=== PATIENT | male | born 1970 | race African-American/Black ===

== ENCOUNTER 2025-02-15 21:12 | Inpatient (IN) | payer SELFPAY ==
[~2025-02-15] VITALS: Ht 175.3 cm; Wt 75.7 kg
[2025-02-15] MEDS: SODIUM CHLORIDE 0.9% 1,000 ML IV ONE (06:00)
[2025-02-15 21:26] VITALS: O2SAT 99
[2025-02-15] MEDS ORDERED: MORPHINE SULFATE 4 MG/ML INJ (FOR IV/IM USE) IV STA (22:03)
[2025-02-15] MEDS ORDERED: PANTOPRAZOLE SODIUM 40 MG/VIAL IV STA (22:03)
[2025-02-15] MEDS ORDERED: ONDANSETRON HCL 4MG/2ML INJ IV STA (22:03)
[2025-02-15 23:48] LABS: BASOPHILS % 0.3 % (0.0-2.0); EOSINOPHILS % 0.1 % (0.0-5.0); HEMATOCRIT. 51.1 % (42.0-52.0); HEMOGLOBIN. 16.5 g/dL (14.0-18.0); LYMPHOCYTES % 11.1 % (20.0-50.0); MEAN CORPUSCULAR HEMOGLOBIN 27.8 pg (28.0-32.0); MEAN CORPUSCULAR HGB CONC 32.3 g/dL (31.0-37.0); MEAN CORPUSCULAR VOLUME 86.1 fL (80.0-94.0); MEAN PLATELET VOLUME 9.6 fl (7.4-10.4); MONOCYTES % 4.5 % (2.0-8.0); PLATELET 245 x1000/uL (130-400); RED BLOOD CELL COUNT 5.93 mill/uL (4.7-6.1); RED CELL DISTRIBUTION WIDTH 15.8 % (11.6-14.6); WHITE BLOOD COUNT 13.8 x1000/uL (4.5-11.0)
[2025-02-15 23:53] LABS: CARBON DIOXIDE 18 mEq/L (21-32); CHLORIDE 106 mEq/L (98-107); POTASSIUM 5.3 mEq/L (3.5-5.1); SODIUM 137 mEq/L (136-145)
[2025-02-15 23:54] LABS: CALCIUM 9.4 mg/dL (8.7-10.4)
[2025-02-15 23:58] LABS: CREATININE 1.8 mg/dL (0.6-1.3)
[2025-02-15 23:59] LABS: ETHANOL BLOOD < 10 mg/dL (<10); UREA NITROGEN BLOOD 30 mg/dL (9-23)
[2025-02-16] LABS: ALANINE AMINOTRANSFERASE 19 IU/L (10-49); ALBUMIN 4.3 g/dL (3.2-4.8); ASPARTATE AMINOTRANSFERASE 11 IU/L (<34)
[2025-02-16 00:01] LABS: BILIRUBIN DIRECT 0.2 mg/dL (<=3.0); BILIRUBIN TOTAL 0.5 mg/dL (0.1-1.0); PROTEIN TOTAL 7.2 g/dL (6.0-8.3)
[2025-02-16 00:24] LABS: GLUCOSE 436 mg/dL (70-105); TROPONIN I HIGH SENSITIVITY < 4 ng/L (3.0-53)
[2025-02-16] MEDS ORDERED: CLONIDINE 0.1MG TABLET PO PRN (02:00)
[2025-02-16] MEDS ORDERED: IPRATROPIUM/ALBUTEROL 0.5-3(2.5)MG/3ML NEB HHN PRN (02:00)
[2025-02-16] MEDS ORDERED: ACETAMINOPHEN 325MG TABLET PO PRN (02:00)
[2025-02-16] MEDS ORDERED: DEXTROSE 50% WATER 50ML SYRINGE IV PRN (02:00)
[2025-02-16] MEDS ORDERED: ONDANSETRON HCL 4MG/2ML INJ IV PRN (02:00)
[2025-02-16] MEDS ORDERED: GUAIFENESIN 200MG/10ML SUGAR FREE UDC PO PRN (02:00)
[2025-02-16] MEDS ORDERED: DOCUSATE SODIUM 100MG CAPSULE PO PRN (02:00)
[2025-02-16] MEDS ORDERED: HYDRALAZINE 20MG/ML VIAL IV PRN (02:30)
[2025-02-16] MEDS ORDERED: VANCOMYCIN 2GM PMX (XELLIA) 400 ML IV NR (03:00)
[2025-02-16 04:00] VITALS: BP 122/78; PULSE 107; RESP 18; TEMP 36.8; O2SAT 95
[2025-02-16 04:22] LABS: PHOSPHORUS 3.2 mg/dL (2.5-4.9)
[2025-02-16 05:00] VITALS: BP 122/78; PULSE 93; RESP 16; TEMP 36.7
[2025-02-16] MEDS: SODIUM CHLORIDE 0.9% 1,000 ML IV SCH (06:09)
[2025-02-16] MEDS: PIPERACILLIN/TAZO 3.375G/50ML 50 ML IV SCH (06:10)
[2025-02-16] MEDS: INSULIN LISPRO 100 UNITS/ML SUBCUT SCH (06:37)
[2025-02-16] MEDS: MAGNESIUM 2 G PREMIX 50 ML IV NR (06:50)
[2025-02-16 08:00] VITALS: BP 114/76; PULSE 100; RESP 18; TEMP 36.1; O2SAT 95
[2025-02-16] MEDS: PANTOPRAZOLE SODIUM 40 MG/VIAL IV SCH (09:00)
[2025-02-16] MEDS: BLOOD SUGAR DIAGNOSTIC STRIP TEST SCH (09:27)
[2025-02-16] MEDS: PANTOPRAZOLE SODIUM 40 MG/VIAL IV NR (12:20)
[2025-02-16] MEDS: MORPHINE SULFATE 4 MG/ML INJ (FOR IV/IM USE) IV NR (12:20)
[2025-02-16] MEDS: CEFTRIAXONE 1GM/50ML 50 ML IV ONE (12:21)
[2025-02-16] MEDS: INSULIN REGULAR (HUMULIN R) 1000UNITS/10ML VIAL SUBCUT ONE (12:21)
[2025-02-16] MEDS: ONDANSETRON HCL 4MG/2ML INJ IV NR (12:21)
[2025-02-16 16:00] VITALS: BP 128/84; PULSE 93; RESP 18; TEMP 36.4; O2SAT 97
[2025-02-16 16:49] LABS: POTASSIUM 4.7 mEq/L (3.5-5.1)
[2025-02-16 16:50] LABS: CALCIUM 9.2 mg/dL (8.7-10.4)
[2025-02-16 16:55] LABS: CREATININE 1.8 mg/dL (0.6-1.3)
[2025-02-16 20:00] VITALS: BP 119/72; PULSE 86; RESP 16; TEMP 36.6; O2SAT 99
[2025-02-16] MEDS ORDERED: INSULIN GLARGINE 100 UNITS/ML SUBCUT SCH ×2 (22:00)
[2025-02-16] MEDS: INSULIN GLARGINE 100 UNITS/ML SUBCUT SCH (22:46)
[2025-02-17] VITALS: BP 150/84; PULSE 94; RESP 16; TEMP 37; O2SAT 97
[2025-02-17 04:00] VITALS: BP 141/64; PULSE 78; RESP 17; TEMP 36.7; O2SAT 96
[2025-02-17 06:40] LABS: CHLORIDE 104 mEq/L (98-107); POTASSIUM 4.2 mEq/L (3.5-5.1); SODIUM 137 mEq/L (136-145)
[2025-02-17 06:41] LABS: CALCIUM 8.8 mg/dL (8.7-10.4); CARBON DIOXIDE 21 mEq/L (21-32)
[2025-02-17 06:46] LABS: CREATININE 1.2 mg/dL (0.6-1.3); GLUCOSE 170 mg/dL (70-105); TRIGLYCERIDE 112 mg/dL (0-150); UREA NITROGEN BLOOD 32 mg/dL (9-23)
[2025-02-17 06:47] LABS: LDL CHOLESTEROL 74 mg/dL (5-100)
[2025-02-17 06:48] LABS: CHOLESTEROL 140 mg/dL (<200); HDL CHOLESTEROL 42 mg/dL (>55)
[2025-02-17 06:49] LABS: THYROID STIMULATING HORMONE 0.75 uIU/mL (0.55-4.78)
[2025-02-17 06:58] LABS: BASOPHILS % 0.7 % (0.0-2.0); EOSINOPHILS % 2.6 % (0.0-5.0); HEMATOCRIT. 48.7 % (42.0-52.0); HEMOGLOBIN. 15.9 g/dL (14.0-18.0); LYMPHOCYTES % 28.8 % (20.0-50.0); MEAN CORPUSCULAR HEMOGLOBIN 27.7 pg (28.0-32.0); MEAN CORPUSCULAR HGB CONC 32.7 g/dL (31.0-37.0); MEAN CORPUSCULAR VOLUME 84.5 fL (80.0-94.0); MEAN PLATELET VOLUME 9.3 fl (7.4-10.4); MONOCYTES % 10.8 % (2.0-8.0); NEUTROPHILS % 57.1 % (40.0-76.0); PLATELET 193 x1000/uL (130-400); RED BLOOD CELL COUNT 5.76 mill/uL (4.7-6.1); RED CELL DISTRIBUTION WIDTH 15.6 % (11.6-14.6); WHITE BLOOD COUNT 10.4 x1000/uL (4.5-11.0)
[2025-02-17 08:00] VITALS: BP 128/87; PULSE 96; RESP 16; TEMP 36.7; O2SAT 97
[2025-02-17 12:00] VITALS: BP 124/82; PULSE 89; RESP 16; TEMP 36.5; O2SAT 98
== END 2025-02-17 14:20 | disposition left against medical advice (07) | DRG 247 ==
LOC: ER 21:12 → 5WST 02-16 01:14 → ENRESERV 02-16 01:38
PROVIDERS: ADMIT Internal Medicine; ATTEND Internal Medicine
PROC: 0D9770Z Drainage of Stomach, Pylorus with Drainage Device, Via Natural or Artificial Opening (ICD-10-PCS; principal; 2025-02-16)
DX: K56.609 Unspecified intestinal obstruction, unspecified as to partial versus complete obstruction (principal); N17.9 Acute kidney failure, unspecified; E11.65 Type 2 diabetes mellitus with hyperglycemia; D72.829 Elevated white blood cell count, unspecified; E78.5 Hyperlipidemia, unspecified; E87.5 Hyperkalemia; I10 Essential (primary) hypertension; F15.90 Other stimulant use, unspecified, uncomplicated; J98.11 Atelectasis; Z53.29 Procedure and treatment not carried out because of patient's decision for other reasons; Z79.4 Long term (current) use of insulin; Z79.84 Long term (current) use of oral hypoglycemic drugs; Z79.899 Other long term (current) drug therapy
CPT/HCPCS: 36415; 43752; 71045; 74018; 74176; 80048; 80061; 80076; 80320; 82962; 83036; 83735; 83880; 84100; 84145; 84443; 84484; 85025; 86359; 86360; 87389; 93005; 93970; 97161; 97166; 97535; 99291; J1815; J2405; J2470; J2543; J3370; J3475; J7030; G0480